=== PATIENT | female | born 1965 | race Caucasian/White ===

== ENCOUNTER 2019-03-15 11:16 | Inpatient (IN) | payer SELFPAY ==
[~2019-03-15] VITALS: Ht 154.9 cm; Wt 77.1 kg
[~2019-03-15 11:16] MED LIST: Augmentin 875-1 EACH PO; Cleocin HCl150 MG PO; HYDACE5 PO; IBUP800 PO; METPHE20; PHENA200 PO; RXPHEN200 PO; SULTRIDS PO
[2019-03-15 11:56] LABS: BASOPHILS ABSOLUTE AUTO 0.05 K/mm3 (0.00-0.23); BASOPHILS PERCENT AUTO 0 % (0-2); EOSINOPHILS PERCENT AUTO 0 % (0-6); Hematocrit 42.8 % (33.0-51.0); Hemoglobin 14.4 g/dL (11.5-16.0); IMMATURE GRAN ABSOLUTE AUTO 0.05 K/mm3 (0.00-0.10); IMMATURE GRAN PERCENT AUTO 0 % (0-1); LYMPHOCYTES ABSOLUTE AUTO 1.15 K/mm3 (0.84-5.20); LYMPHOCYTES PERCENT AUTO 7 % (21-46); MONOCYTES ABSOLUTE AUTO 1.39 K/mm3 (0.16-1.47); MONOCYTES PERCENT AUTO 8 % (4-13); Mean Corpuscular HGB 32.9 pg (26.0-34.0); Mean Corpuscular HGB Conc 33.6 g/dL (31.5-36.5); Mean Corpuscular Volume 98 fL (80-100); Mean Platelet Volume 9.6 fL (9.1-12.4); NEUTROPHILS ABSOLUTE AUTO 14.56 K/mm3 (1.96-9.15); NEUTROPHILS PERCENT AUTO 85 % (41-73); Platelet Count 258 K/mm3 (150-400); RDW Coefficient Variation 12.7 % (11.7-14.2); RDW Standard Deviation 45.6 fL (35.1-46.3); Red Blood Cell Count 4.38 M/mm3 (3.80-5.20)
[2019-03-15 12:14] LABS: Alanine Aminotransfer (ALT/SGP 22 U/L (12-78); Albumin, Blood 3.4 g/dL (3.4-5.0); Albumin/Globulin Ratio 0.8 (0.8-1.8); Alk Phos 85 U/L (50-136); Anion Gap 4 mmol/L (6-16); Aspartate Aminotrans (AST/SGOT 13 U/L (12-37); Bilirubin, Total 0.6 mg/dL (0.1-1.0); Blood Urea Nitrogen 13 mg/dL (8-24); Bun/Creatinine Ratio 18.1 (12.0-20.0); CO2, Blood 26 mmol/L (21-32); Calcium, Blood 8.8 mg/dL (8.5-10.1); Chloride, Blood 108 mmol/L (98-108); Creatinine, Blood 0.72 mg/dL (0.40-1.00); Glomerular Filtration Rate >60 (60-); Glucose, Blood 120 mg/dL (70-99); Potassium, Blood 3.6 mmol/L (3.5-5.5); Sodium, Blood 138 mmol/L (136-145); Total Protein, Blood 7.4 g/dL (6.4-8.2)
[2019-03-15 13:29] LABS: Source, Urine Clean Catch
[2019-03-15 13:33] LABS: Bilirubin, Urine Neg (Neg); Blood, Urine 3+ (Neg); Color, Urine Yellow (P-Yellow); Glucose Qualitative, Urine Neg (Neg); Ketones, Urine 1+ (Neg); Leukocyte Esterase, Urine 1+ (Neg); Nitrite, Urine Neg (Neg); Protein, Urine 1+ (Neg); Specific Gravity, Urine 1.025 (1.003-1.022); Urobilinogen, Urine 1+ (Normal)
[2019-03-15 13:46] LABS: Appearance, Urine Hazy (Clear)
[2019-03-15 13:56] LABS: Bacteria Mod /hpf; Mucus Mod (0-Heavy); Squamous Epithelial Cells Mod /hpf (Few)
--- NOTE | 2019-03-15 17:30 | NUR ---
SHIFT SUMMARY PT NEW ADMIT THIS SHIFT FOR APPY. PT PAIN MANAGED WITH 0.5MG DILAUDID MEDICATED ONCE. IVF PER EMAR. PT NPO WITH OR PLANNED TODAY.
--- NOTE | 2019-03-15 18:18 | NUR ---
PT TO OR AT APROX 1800.
--- NOTE | 2019-03-15 21:20 | NUR ---
PT TO ROOM RESTING ON LEFT SIDE. AAOX4. PT REPORTING DISCOMFORT AT TOLERABLE LEVEL, REPORTING MILD NAUSEA. PT ENCOURAGED TO DEEP BREATHE TOLERATED. DRESSING TO ABD WITH GAUZE C/D/I. AT BEDSIDE. CALL LIGHT IN REACH.
[2019-03-16 05:04] LABS: BASOPHILS ABSOLUTE AUTO 0.04 K/mm3 (0.00-0.23); BASOPHILS PERCENT AUTO 0 % (0-2); EOSINOPHILS ABSOLUTE AUTO 0.01 K/mm3 (0.00-0.68); EOSINOPHILS PERCENT AUTO 0 % (0-6); Hematocrit 37.8 % (33.0-51.0); Hemoglobin 12.3 g/dL (11.5-16.0); IMMATURE GRAN ABSOLUTE AUTO 0.06 K/mm3 (0.00-0.10); IMMATURE GRAN PERCENT AUTO 0 % (0-1); LYMPHOCYTES ABSOLUTE AUTO 0.58 K/mm3 (0.84-5.20); LYMPHOCYTES PERCENT AUTO 3 % (21-46); MONOCYTES ABSOLUTE AUTO 0.96 K/mm3 (0.16-1.47); MONOCYTES PERCENT AUTO 5 % (4-13); Mean Corpuscular HGB 32.8 pg (26.0-34.0); Mean Corpuscular HGB Conc 32.5 g/dL (31.5-36.5); Mean Platelet Volume 9.8 fL (9.1-12.4); NEUTROPHILS ABSOLUTE AUTO 17.35 K/mm3 (1.96-9.15); NEUTROPHILS PERCENT AUTO 91 % (41-73); Platelet Count 201 K/mm3 (150-400); RDW Coefficient Variation 12.9 % (11.7-14.2); RDW Standard Deviation 48.3 fL (35.1-46.3); Red Blood Cell Count 3.75 M/mm3 (3.80-5.20)
[2019-03-16 05:12] LABS: Mean Corpuscular Volume 101 fL (80-100)
--- NOTE | 2019-03-16 05:17 | NUR ---
SHIFT SUMMARY PT POD#1 LAP APPI. AAOX4. DISCOMFORT AT TOLERABLE LEVEL T/O NIGHT, MILD NAUSEA, NO EMESIS. DRESSING TO ABD C/D/I. TOLERATING DIET + GOOD OUTPUT. ENCOURAGE AMBULATION TODAY + DEEP BREATING. PT RESTING THIS AM. AT BEDSIDE T/O NIGHT. CALL LIGHT IN REACH. CALVIN.
--- NOTE | 2019-03-16 11:19 | NUR ---
NOTE PT WAS EXPERIENCING SEVERE HEARTBURN. SHE NORMALLY TAKES ZANTAC AT HOME. CALLED PHARMACY. WE CARRY ZANTAC IN LIQUID FORM. CALLED DR MARTINEZ FOR ORDER. GAVE PT ZANTAC ELEXIR THAT RESOLVED HER REFLUX. PT TOLERATING CLEAR LIQUIDS WITHOUT DIFFICULY. NO BLOATING OR CRAMPING NOTED. PT HAD ELEVATED TEMPERATURE THIS AM. TALKED WITH HER ABOUT COUGHING AND DEEP BREATHING WITH TV COMMERCIALS. SHE HAS BEEN COMPLAINT WITH IT. TEMPERATURE HAS NORMALIZED. BP WAS NOTED TO LOW DURING THE NIGHT. PT STATED THAT IT'S NORMAL FOR HER. CONTINUE POT.
--- NOTE | 2019-03-16 17:48 | NUR ---
ADVANCE TO REGULAR DIET-FAIL DR MARTINEZ ADVANCED PT TO REGULAR DIET. PT ATE A ROASTBEEF SANDWHICH AND PEACHES. PT EXPRESSED INCREASED ABD. CRAMPING, BLOATING AND A FEELING OF GI DISTRESS. TALKED WITH HER AND DOWN GRADED HER DIET TO FULL LIQUID FOR TOMORROW. PT DENIED NEED FOR NAUSEA MEDICATION. CONTINUE POT.
[2019-03-17 04:09] LABS: BASOPHILS ABSOLUTE AUTO 0.04 K/mm3 (0.00-0.23); BASOPHILS PERCENT AUTO 0 % (0-2); EOSINOPHILS ABSOLUTE AUTO 0.07 K/mm3 (0.00-0.68); EOSINOPHILS PERCENT AUTO 1 % (0-6); Hematocrit 31.9 % (33.0-51.0); Hemoglobin 10.3 g/dL (11.5-16.0); IMMATURE GRAN ABSOLUTE AUTO 0.04 K/mm3 (0.00-0.10); IMMATURE GRAN PERCENT AUTO 0 % (0-1); LYMPHOCYTES ABSOLUTE AUTO 1.98 K/mm3 (0.84-5.20); LYMPHOCYTES PERCENT AUTO 19 % (21-46); MONOCYTES ABSOLUTE AUTO 0.84 K/mm3 (0.16-1.47); MONOCYTES PERCENT AUTO 8 % (4-13); Mean Corpuscular HGB 32.4 pg (26.0-34.0); Mean Corpuscular HGB Conc 32.3 g/dL (31.5-36.5); Mean Corpuscular Volume 100 fL (80-100); Mean Platelet Volume 10.1 fL (9.1-12.4); NEUTROPHILS ABSOLUTE AUTO 7.26 K/mm3 (1.96-9.15); NEUTROPHILS PERCENT AUTO 71 % (41-73); Platelet Count 178 K/mm3 (150-400); RDW Coefficient Variation 13.2 % (11.7-14.2); Red Blood Cell Count 3.18 M/mm3 (3.80-5.20); White Blood Cell Count 10.23 K/mm3 (4.00-11.30)
--- NOTE | 2019-03-17 05:29 | NUR ---
SHIFT SUMMARY PT POD#2 LAP APPI. AAOX4. DISCOMFORT CONTROLLED WITH 1 NORCO X1 THIS SHIFT. NO NAUSEA/EMESIS. ABD INCISION WITH GAUZE C/D/I. IVF + ABX PER ORDERS. PT RESTED WELL T/O NIGHT. UP TO RESTROOM INDEPENDENTLY. PT RESTING AT THIS TIME WITH CALL LIGHT IN REACH. CALVIN.
[2019-03-17] MEDS ORDERED: HYDR1TAB94 PO (12:14)
--- NOTE | 2019-03-17 12:44 | NUR ---
DISCHARGED DC'D IV, CATHETER INTACT. REVIEWED DC PAPERWORK; PT VERBALIZED UNDERSTANDING. PT LEFT UNIT BY AMBULATION W/POSSESSIONS AND DC PAPERWORK IN HAND ACCOMPANIED BY SPOUSE.
== END 2019-03-17 12:43 | disposition home or self-care (01) | DRG 343 ==
LOC: ER 11:16 → SURS 13:15
PROVIDERS: Emergency Medicine; ADMIT Surgery
PROC: 0DTJ4ZZ Resection of Appendix, Percutaneous Endoscopic Approach (ICD-10-PCS; principal; 2019-03-15 14:15)
DX: K35.80 Unspecified acute appendicitis (principal); K21.9 Gastro-esophageal reflux disease without esophagitis; G89.29 Other chronic pain; J44.9 Chronic obstructive pulmonary disease, unspecified; F17.200 Nicotine dependence, unspecified, uncomplicated
CPT/HCPCS: 36415; 74176; 80053; 81001; 83690; 85025; 87086; 88304; 96365; 96375; 99285-25; A9270-GY; J0295; J0696; J1100; J1650; J1885; J2250; J2370; J2405; J2543; J2704; J2710; J3010; J7030; J7120